=== PATIENT | male | born 1960 | race American Indian/Alaskan Native ===

== ENCOUNTER 2020-12-05 08:05 | Outpatient (CLI) | payer BC | END 2020-12-05 19:09 | disposition home or self-care (01) | LOC: US 08:05 → RESP 09:00 → NM 09:00 → US 19:09 | PROVIDERS: ATTEND Family Medicine | DX: D86.89 Sarcoidosis of other sites (principal); Z13.9 Encounter for screening, unspecified; I16.0 Hypertensive urgency | CPT/HCPCS: 36415; 82565; 84520; Q9963 ==

== ENCOUNTER 2020-12-09 07:45 | Outpatient (CLI) | payer BC | END 2020-12-09 21:39 | disposition home or self-care (01) | LOC: NM 07:45 → RESP 07:45 → NM 08:00 | PROVIDERS: ATTEND Family Medicine | DX: I10 Essential (primary) hypertension (principal); D86.89 Sarcoidosis of other sites | CPT/HCPCS: A9500 ==

== ENCOUNTER 2021-03-03 10:10 | Outpatient (CLI) | payer BC, OTHER | END 2021-03-03 19:22 | disposition home or self-care (01) | LOC: RAD 10:10 | PROVIDERS: ATTEND Nurse Practitioner Family | DX: Z03.89 Encounter for observation for other suspected diseases and conditions ruled out (principal) ==

== ENCOUNTER 2021-06-18 14:10 | Outpatient (CLI) | payer BC | END 2021-06-18 19:00 | disposition home or self-care (01) | LOC: CT 14:10 | PROVIDERS: ATTEND Optometrist | DX: H47.092 Other disorders of optic nerve, not elsewhere classified, left eye (principal) ==

== ENCOUNTER 2023-11-01 08:58 | Outpatient (CLI) | payer OTHER | END 2023-11-01 19:05 | disposition home or self-care (01) | LOC: RESP 08:58 | PROVIDERS: ATTEND Nurse Practitioner Family | DX: R07.89 Other chest pain (principal); R06.02 Shortness of breath | CPT/HCPCS: 93005 ==